=== PATIENT | male | born 1955 | race Caucasian/White ===

== ENCOUNTER 2023-10-21 23:40 | Inpatient (IN) | payer OTHER ==
[~2023-10-21] VITALS: Ht 177.8 cm; Wt 184.6 kg
[2023-10-22] VITALS (17 sets, daily range): BP systolic 126–141; BP diastolic 66–90; PULSE 96–132; RESP 12–92; TEMP 98.2–98.6; O2SAT 94–97
[2023-10-22] MEDS: dilTIAZem 25 MG/5 ML VIAL IV ONE (01:00)
[2023-10-22 01:10] LABS: Basophils # (auto) 0 10 ^3/uL (0-0.2); Lymphocytes # (auto) 1.2 10 ^3/uL (0.4-5.4); Monocytes # (auto) 0.9 10 ^3/uL (0-1.3)
[2023-10-22 01:12] LABS: Basophils % (auto) 0.4 % (0.0-2.0); Eosinophils # (auto) 0.1 10 ^3/uL (0-0.8); Eosinophils % (auto) 1.5 % (0.0-7.0); Hematocrit 33.3 % (41.0-53.0); Hemoglobin 10.7 g/dL (13.5-17.5); Lymphocytes % (auto) 14.3 % (10.0-50.0); Mean Corpuscular Hemoglobin 25.1 pg (28.0-32.0); Mean Corpuscular Hgb Conc. 32.1 g/dL (32.0-36.0); Mean Corpuscular Volume 78.3 fL (80.0-100.0); Monocytes % (auto) 10.9 % (0.0-12.0); Neutrophils # (auto) 6.2 10 ^3/uL (1.6-8.6); Neutrophils % (auto) 72.9 % (37.0-80.0); Red Blood Cells 4.26 10^6/uL (4.5-5.90); Red Cell Distribution Width 19.2 % (11.8-14.3); White Blood Cell 8.6 10^3/uL (4.4-10.8)
[2023-10-22 01:27] LABS: Alanine Aminotransferase 24 U/L (7-40); Albumin 3.9 g/dL (3.2-4.8); Alkaline Phosphatase 73 U/L (46-116); Anion Gap 6 (5-15); Aspartate Aminotransferase 18 U/L (13-40); BUN/Creatinine Ratio 15.6 (10.0-20.0); Bilirubin, Total 0.4 mg/dL (0.2-1.0); Blood Urea Nitrogen 12 mg/dL (9-23); Calcium 9.4 mg/dL (8.7-10.4); Carbon Dioxide 30 mmol/L (20-30); Chloride 105 mmol/L (98-107); Glucose 145 mg/dL (74-106); Magnesium 1.7 mg/dL (1.6-2.6); Potassium 3.4 mmol/L (3.5-5.1); Sodium 141 mmol/L (136-145); Total Protein 7.3 g/dL (5.7-8.2)
[2023-10-22 01:50] LABS: INR 1.13 (0.9-1.15); Partial Thromboplastin Time 26.7 SEC (24.5-34.5); Prothrombin Time 11.9 sec (9.3-11.8)
[2023-10-22] MEDS: dilTIAZem 125mg/125ml BAG KIT 125 ML IV ONE (02:09)
[2023-10-22] MEDS: FUROSEMIDE 40 MG/4 ML VIAL IV ONE (03:40)
[2023-10-22] MEDS ORDERED: ONDANSETRON HCL 4 MG/2 ML VIAL IV PRN (04:45)
[2023-10-22] MEDS ORDERED: hydrALAZINE HCL 20 MG/ML VL IV PRN (04:45)
[2023-10-22] MEDS ORDERED: ACETAMINOPHEN 325 MG TAB PO PRN (04:45)
[2023-10-22] MEDS ORDERED: DEXTROSE (50%) 50ML SYRG IV PRN (04:45)
[2023-10-22 06:00] LABS: Basophils # (auto) 0 10 ^3/uL (0-0.2); Basophils % (auto) 0.3 % (0.0-2.0); Eosinophils # (auto) 0.1 10 ^3/uL (0-0.8); Eosinophils % (auto) 0.6 % (0.0-7.0); Hematocrit 33.5 % (41.0-53.0); Hemoglobin 10.7 g/dL (13.5-17.5); Lymphocytes # (auto) 0.9 10 ^3/uL (0.4-5.4); Lymphocytes % (auto) 8.2 % (10.0-50.0); Mean Corpuscular Hemoglobin 24.8 pg (28.0-32.0); Mean Corpuscular Hgb Conc. 31.8 g/dL (32.0-36.0); Mean Corpuscular Volume 77.8 fL (80.0-100.0); Monocytes # (auto) 0.8 10 ^3/uL (0-1.3); Monocytes % (auto) 7.6 % (0.0-12.0); Neutrophils % (auto) 83.3 % (37.0-80.0); Nucleated Red Blood Cells % 0.1 %; Red Blood Cells 4.31 10^6/uL (4.5-5.90); Red Cell Distribution Width 18.9 % (11.8-14.3); White Blood Cell 10.8 10^3/uL (4.4-10.8)
[2023-10-22] MEDS ORDERED: NITROGLYCERIN 0.4 MG SL TAB SL PRN (06:00)
[2023-10-22] MEDS ORDERED: MORPHINE SULFATE INJ 2 MG/ml SYRG IV PRN (06:00)
[2023-10-22 06:08] LABS: Alanine Aminotransferase 21 U/L (7-40); Alkaline Phosphatase 66 U/L (46-116); Anion Gap 9 (5-15); Aspartate Aminotransferase 17 U/L (13-40); Bilirubin, Total 0.6 mg/dL (0.2-1.0); Blood Urea Nitrogen 10 mg/dL (9-23); Calcium 9.3 mg/dL (8.7-10.4); Carbon Dioxide 27 mmol/L (20-30); Chloride 105 mmol/L (98-107); Glucose 184 mg/dL (74-106); Potassium 3.6 mmol/L (3.5-5.1); Sodium 141 mmol/L (136-145); Total Protein 7.4 g/dL (5.7-8.2)
[2023-10-22] MEDS: SODIUM CHLOR 0.9% PF (SALINE LOCK) 10ML VIAL/SYR IV SCH (06:12)
[2023-10-22] MEDS: InsuLIN REG 1unit/0.01ml Soln (100units/ml) SC SCH (07:00)
[2023-10-22] MEDS: ACCU-CHEK COMFORT CURVE STRIP VI SCH (07:07)
[2023-10-22] MEDS: ASPirin 81 mg TAB PO SCH (08:06)
[2023-10-22] MEDS: FUROSEMIDE 40 MG/4 ML VIAL IV SCH ×2 (08:06→17:50)
[2023-10-22] MEDS: AMIODARONE BOLUS KIT 100 ML IV ONE (09:23)
[2023-10-22] MEDS: AMIODARONE 450mg/250ml AE 250 ML IV SCH ×2 (09:30→15:27)
[2023-10-22] MEDS: ENOXAPARIN SOD 150 MG/1 ML SYRINGE SC SCH (09:32)
[2023-10-22] MEDS: methylPREDNISolone SOD SUCC 40 MG/ML VL IV SCH (09:32)
[2023-10-22] MEDS ORDERED: POTASSIUM CHL 20MEQ/100ML 100 ML IV SCH (11:00)
[2023-10-22] MEDS: IPRATROPIUM BROM 0.5 MG/2.5ML INH SOL NEB SCH (11:08)
[2023-10-22] MEDS: cefTRIAXone 1GM/50ML D5W 50 ML IV ONE (11:11)
[2023-10-22 12:07] LABS: COVID19 ANTIGEN SOFIA FIA NEGATIVE (NEGATIVE); Rapid Influenza A Negative (Negative); Rapid Influenza B Negative (Negative)
[2023-10-22] MEDS: MAGNESIUM SULFATE 1GM/100ML 100 ML IV SCH (12:15)
[2023-10-22] MEDS: POTASSIUM CHL 20 Meq TABLET PO ONE (12:15)
[2023-10-22 16:23] LABS: Urine Bacteria None Seen /hpf (None Seen)
[2023-10-22 16:34] LABS: Urine Blood 1+ /uL (Negative); Urine Clarity Clear (Clear); Urine Color Light-Yellow (Yellow); Urine Mucus FEW (None Seen); Urine Protein, UAD Negative (Negative); Urine Specific Gravity 1.016 (1.001-1.035); Urine Urobilinogen Normal (Negative); Urine WBC 2 /hpf (0 - 3)
[2023-10-22] MEDS: SPIRONOLACTONE 25 MG TAB PO ONE (17:50)
[2023-10-22] MEDS: ATORVASTATIN 20 MG TAB PO SCH (22:24)
[2023-10-22] MEDS: SACUBITRIL-VALSARTAN 24mg/26mg TAB PO SCH (22:51)
[2023-10-23] VITALS (18 sets, daily range): BP systolic 108–147; BP diastolic 53–96; PULSE 55–144; RESP 14–21; TEMP 97.8–98.7; O2SAT 91–100
[2023-10-23] MEDS ORDERED: FURO20TA3 PO (00:04)
[2023-10-23] MEDS ORDERED: PANT40TA2 PO (00:04)
[2023-10-23] MEDS ORDERED: SERT-160 PO (00:04)
[2023-10-23] MEDS ORDERED: LISI-285 PO (00:04)
[2023-10-23 06:19] LABS: Basophils # (auto) 0 10 ^3/uL (0-0.2); Eosinophils # (auto) 0 10 ^3/uL (0-0.8); Hemoglobin 10.8 g/dL (13.5-17.5); Monocytes # (auto) 0.4 10 ^3/uL (0-1.3)
[2023-10-23 06:21] LABS: Hematocrit 34.5 % (41.0-53.0); Lymphocytes # (auto) 0.8 10 ^3/uL (0.4-5.4); Lymphocytes % (auto) 6.1 % (10.0-50.0); Mean Corpuscular Hemoglobin 24.4 pg (28.0-32.0); Mean Corpuscular Hgb Conc. 31.3 g/dL (32.0-36.0); Mean Corpuscular Volume 78.1 fL (80.0-100.0); Neutrophils # (auto) 11.7 10 ^3/uL (1.6-8.6); Neutrophils % (auto) 90.9 % (37.0-80.0); Red Blood Cells 4.42 10^6/uL (4.5-5.90); Red Cell Distribution Width 19.6 % (11.8-14.3); White Blood Cell 12.8 10^3/uL (4.4-10.8)
[2023-10-23 07:05] LABS: Alanine Aminotransferase 19 U/L (7-40); Albumin 4.3 g/dL (3.2-4.8); Alkaline Phosphatase 64 U/L (46-116); Anion Gap 8 (5-15); Aspartate Aminotransferase 12 U/L (13-40); BUN/Creatinine Ratio 16.8 (10.0-20.0); Bilirubin, Total 0.5 mg/dL (0.2-1.0); Blood Urea Nitrogen 18 mg/dL (9-23); Calcium 9.5 mg/dL (8.7-10.4); Carbon Dioxide 29 mmol/L (20-30); Chloride 102 mmol/L (98-107); Glucose 215 mg/dL (74-106); Potassium 4.4 mmol/L (3.5-5.1); Sodium 139 mmol/L (136-145)
[2023-10-23] MEDS: SPIRONOLACTONE 25 MG TAB PO SCH (09:14)
[2023-10-23] MEDS: cefTRIAXone 1GM/50ML D5W 50 ML IV SCH (09:46)
[2023-10-23] MEDS: AMIODARONE HCL 200 MG TAB PO SCH (18:08)
[2023-10-24] VITALS (20 sets, daily range): BP systolic 107–158; BP diastolic 63–92; PULSE 67–140; RESP 16–24; TEMP 97.8–98.3; O2SAT 92–100
[2023-10-24] MEDS: NITROGLYCERIN 2% OINT 1GM PKG TD SCH ×2 (08:00→15:39)
[2023-10-24 09:12] LABS: Basophils # (auto) 0 10 ^3/uL (0-0.2); Eosinophils # (auto) 0 10 ^3/uL (0-0.8); Hematocrit 36.9 % (41.0-53.0); Mean Corpuscular Volume 77.7 fL (80.0-100.0); Monocytes # (auto) 0.6 10 ^3/uL (0-1.3)
[2023-10-24 09:14] LABS: Basophils % (auto) 0.2 % (0.0-2.0); Hemoglobin 11.7 g/dL (13.5-17.5); Lymphocytes # (auto) 1.1 10 ^3/uL (0.4-5.4); Lymphocytes % (auto) 7.1 % (10.0-50.0); Mean Corpuscular Hemoglobin 24.6 pg (28.0-32.0); Mean Corpuscular Hgb Conc. 31.7 g/dL (32.0-36.0); Monocytes % (auto) 4.3 % (0.0-12.0); Neutrophils # (auto) 13.1 10 ^3/uL (1.6-8.6); Neutrophils % (auto) 88.4 % (37.0-80.0); Nucleated Red Blood Cells % 0.1 %; Red Blood Cells 4.74 10^6/uL (4.5-5.90); Red Cell Distribution Width 19.1 % (11.8-14.3); White Blood Cell 14.8 10^3/uL (4.4-10.8)
[2023-10-24 09:21] LABS: Anion Gap 7 (5-15); Carbon Dioxide 29 mmol/L (20-30); Chloride 103 mmol/L (98-107); Potassium 3.6 mmol/L (3.5-5.1); Sodium 139 mmol/L (136-145)
[2023-10-24 09:22] LABS: Calcium 9.6 mg/dL (8.7-10.4)
[2023-10-24 09:27] LABS: BUN/Creatinine Ratio 27.7 (10.0-20.0); Blood Urea Nitrogen 26 mg/dL (9-23); Glucose 179 mg/dL (74-106); Magnesium 2.1 mg/dL (1.6-2.6)
[2023-10-24] MEDS: HYDROcodone-ACET 5/325MG TAB PO PRN (09:42)
[2023-10-24] MEDS ORDERED: TIRZ10IN SC (15:13)
[2023-10-24] MEDS ORDERED: ALBU108A5 INH (15:13)
[2023-10-25] VITALS (23 sets, daily range): BP systolic 103–146; BP diastolic 56–93; PULSE 47–118; RESP 15–20; TEMP 98–99; O2SAT 91–98
[2023-10-25 08:00] LABS: Basophils # (auto) 0 10 ^3/uL (0-0.2); Basophils % (auto) 0.1 % (0.0-2.0); Eosinophils # (auto) 0 10 ^3/uL (0-0.8); Hematocrit 36.5 % (41.0-53.0); Hemoglobin 11.4 g/dL (13.5-17.5); Lymphocytes # (auto) 0.8 10 ^3/uL (0.4-5.4); Lymphocytes % (auto) 7.4 % (10.0-50.0); Mean Corpuscular Hemoglobin 24.4 pg (28.0-32.0); Mean Corpuscular Hgb Conc. 31.3 g/dL (32.0-36.0); Monocytes # (auto) 0.4 10 ^3/uL (0-1.3); Monocytes % (auto) 3.2 % (0.0-12.0); Neutrophils # (auto) 9.8 10 ^3/uL (1.6-8.6); Neutrophils % (auto) 89.3 % (37.0-80.0); Red Blood Cells 4.68 10^6/uL (4.5-5.90); Red Cell Distribution Width 19.2 % (11.8-14.3); White Blood Cell 10.9 10^3/uL (4.4-10.8)
[2023-10-25] MEDS: HEPARIN IN NS 1000Units/500mL 1,500 ML ONE (08:10)
[2023-10-25] MEDS: IODIXANOL 320MG/ML 100ML BTL IV ONE (08:10)
[2023-10-25 08:17] LABS: Chloride 103 mmol/L (98-107); Potassium 3.9 mmol/L (3.5-5.1); Sodium 139 mmol/L (136-145)
[2023-10-25 08:18] LABS: Anion Gap 5 (5-15); Calcium 9.4 mg/dL (8.7-10.4); Carbon Dioxide 31 mmol/L (20-30)
[2023-10-25 08:23] LABS: BUN/Creatinine Ratio 31.1 (10.0-20.0); Blood Urea Nitrogen 28 mg/dL (9-23); Glucose 170 mg/dL (74-106)
[2023-10-25] MEDS: VERAPAMIL 2.5MG/ML INJ 2ML VIAL IV ONE (09:13)
[2023-10-25] MEDS: LIDOCAINE 2%HCL (LOCAL ANESTH.) INJ 20ML MDV ONE (09:13)
[2023-10-25] MEDS: MIDAZOLAM HCL 2MG/2ML 2ml VIAL (1mg/ml) ONE (10:23)
[2023-10-25] MEDS: fentaNYL CITRATE 100 MCG/2 ML VL ONE (10:23)
[2023-10-25] MEDS: SODIUM CHL 0.9% 0 ML ONE (11:04)
[2023-10-25] MEDS: ANGIOMAX 250 MG VIAL IV ONE (11:04)
[2023-10-25] MEDS: HEPARIN SODIUM (PORCINE) 5000 UNITS/ML 1ML VIAL ONE (11:05)
[2023-10-25] MEDS: APIXABAN 5 MG TAB PO SCH (21:58)
[2023-10-26] VITALS (22 sets, daily range): BP systolic 115–140; BP diastolic 70–87; PULSE 53–127; RESP 16–22; TEMP 98–99.2; O2SAT 90–99
[2023-10-26 06:12] LABS: Alanine Aminotransferase 25 U/L (7-40); Albumin 4.3 g/dL (3.2-4.8); Alkaline Phosphatase 63 U/L (46-116); Anion Gap 6 (5-15); BUN/Creatinine Ratio 28.7 (10.0-20.0); Blood Urea Nitrogen 27 mg/dL (9-23); Calcium 9.6 mg/dL (8.7-10.4); Carbon Dioxide 32 mmol/L (20-30); Chloride 101 mmol/L (98-107); Glucose 180 mg/dL (74-106); Potassium 4.2 mmol/L (3.5-5.1); Sodium 139 mmol/L (136-145)
[2023-10-26 06:13] LABS: Aspartate Aminotransferase 18 U/L (13-40); Bilirubin, Total 0.3 mg/dL (0.2-1.0); Total Protein 7.7 g/dL (5.7-8.2)
[2023-10-27] VITALS (12 sets, daily range): BP systolic 135–142; BP diastolic 73–85; PULSE 55–113; RESP 14–20; TEMP 36.8; O2SAT 89–100
[2023-10-27] MEDS: DOCUSATE SOD 100 MG CAP PO PRN (11:04)
[2023-10-27] MEDS ORDERED: SACU1TAB PO (11:17)
[2023-10-27] MEDS ORDERED: AMIO200T33 PO (11:17)
[2023-10-27] MEDS ORDERED: [UNRECOGNIZED DRUG - CODE] PO (11:17)
[2023-10-27] MEDS ORDERED: ATOR20TA PO (11:17)
[2023-10-27] MEDS ORDERED: APIX5TAB PO (11:17)
== END 2023-10-27 16:56 | disposition home or self-care (01) | DRG 286 ==
LOC: EDBD 23:40 → ER 23:40 → EDSEX 23:40 → TELE 10-22 05:58 → TELE-WESTW 10-22 23:37
PROVIDERS: ADMIT Nurse Practitioner Family; ATTEND Family Medicine
PROC: 4A023N7 Measurement of Cardiac Sampling and Pressure, Left Heart, Percutaneous Approach (ICD-10-PCS; principal; 2023-10-25)
PROC: B211YZZ Fluoroscopy of Multiple Coronary Arteries using Other Contrast (ICD-10-PCS; 2023-10-25)
DX: I11.0 Hypertensive heart disease with heart failure (principal); I50.43 Acute on chronic combined systolic (congestive) and diastolic (congestive) heart failure; J15.69 Pneumonia due to other Gram-negative bacteria; J15.9 Unspecified bacterial pneumonia; J44.0 Chronic obstructive pulmonary disease with (acute) lower respiratory infection; J44.1 Chronic obstructive pulmonary disease with (acute) exacerbation; Z68.43 Body mass index [BMI] 50.0-59.9, adult; Z20.822 Contact with and (suspected) exposure to COVID-19; E11.9 Type 2 diabetes mellitus without complications; E66.01 Morbid (severe) obesity due to excess calories; E87.6 Hypokalemia; I48.91 Unspecified atrial fibrillation; I25.5 Ischemic cardiomyopathy; I25.10 Atherosclerotic heart disease of native coronary artery without angina pectoris; Z88.0 Allergy status to penicillin; Z79.01 Long term (current) use of anticoagulants
CPT/HCPCS: 36415; 71045; 80048; 80053; 81001; 82962; 83735; 83880; 84443; 84484; 85025; 85610; 85730; 86850; 86900; 86901; 87086; 87426; 87804; 93005; 93306; 93458; 94640; 96365; 96375; 99152; 99291; G0378; J1815; J2250; Q9967